=== PATIENT | female | born 1970 | race Two or more races ===

== ENCOUNTER 2019-11-03 16:57 | Observation (INO) | payer MEDICARE, BC ==
[~2019-11-03 16:57] MED LIST: DEXAMETHASONE SOD PHOSPHATE INJ 4 MG/1 ML VIAL ONE; GLYCOPYRROLATE 1 MG/5 ML VIAL ONE; KETOROLAC TROMETHAMINE 60 MG/2 ML SDV ONE; LIDOCAINE 2% INJ-PF (20 MG/ML) 2 ML AMPUL ONE; NEOSTIGMINE METHYLSULFATE 10 MG/10 ML VIAL ONE; ONDANSETRON HCL INJ/PF 4 MG/2 ML SDV ONE; ROCURONIUM BROMIDE INJ 50 MG/5 ML VIAL IV ONE
--- NOTE | 2019-11-03 17:06 | ER Document Report ---
ED Medical Screen (RME) - General Chief Complaint: Vomiting Stated Complaint: ABDOMINAL PAIN,VOMITING,CHILLS Time Seen by Provider: 11/03/19 17:03 Mode of Arrival: Wheelchair Information source: Patient Notes: 49-year-old female presented to ED for right lower quadrant/pelvic pain nausea vomiting since a.m. She is sweating. She is alert oriented respirations regular nonlabored. She states she has not had any fevers. She states the pain started about 10 AM. Does have extreme tenderness to the right lower quadrant/pelvic area. I have greeted and performed a rapid initial assessment of this patient. A comprehensive ED assessment and evaluation of the patient, analysis of test results and completion of medical decision making process will be conducted by an additional ED providers.
--- NOTE | 2019-11-03 17:31 | ER Document Report ---
ED GI/ - General Chief Complaint: Vomiting Stated Complaint: ABDOMINAL PAIN,VOMITING,CHILLS Time Seen by Provider: 11/03/19 17:03 Mode of Arrival: Ambulatory Information source: Patient TRAVEL OUTSIDE OF THE [place] IN LAST 30 DAYS: No - HPI Patient complains to provider of: Abdominal pain - This 49-year-old female presents to the emergency room today stating that she had right lower abdominal discomfort which started about 10:00 it is severely tender she last had a menstrual period 2 weeks ago she has not had any p.o. food or fluids since 10 AM. She was advised not to eat or drink anything while she is here in the department. - Related Data Allergies/Adverse Reactions: No Known Allergies Allergy (Unverified 11/03/19 17:50) Past Medical History - General Information source: Patient - Social History Smoking Status: Never Smoker Cigarette use (# per day): No Chew tobacco use (# tins/day): No Smoking Education Provided: No Frequency of alcohol use: None Drug Abuse: None Family History: None Review of Systems - Review of Systems Constitutional: No symptoms reported EENT: No symptoms reported Cardiovascular: No symptoms reported Respiratory: No symptoms reported Gastrointestinal: No symptoms reported, Abdominal pain, Diarrhea, Poor appetite. denies: Nausea Genitourinary: No symptoms reported Female Genitourinary: No symptoms reported Musculoskeletal: No symptoms reported Skin: No symptoms reported Hematologic/Lymphatic: No symptoms reported Neurological/Psychological: No symptoms reported Physical Exam - Vital signs Vitals: Temp 97.8 F 11/03/19 17:35 Interpretation: Normal - General General appearance: Appears well, Alert - HEENT Head: Normocephalic, Atraumatic Eyes: Normal Pupils: PERRL - Respiratory Respiratory status: No respiratory distress Chest status: Nontender Breath sounds: Normal Chest palpation: Normal - Cardiovascular Rhythm: Regular Heart sounds: Normal auscultation Murmur: No - Abdominal Inspection: Normal Distension: No distension. No: Tympanitic, Fluid wave Bowel sounds: Hypoactive Tenderness: Nontender, Tender Organomegaly: No organomegaly - Genitourinary External exam: Normal Speculum exam: Normal Vaginal bleeding: Mild Bimanuel exam: Cervical motion tender - mild, Adnexal tenderness - right - Back Back: Normal, Nontender - Extremities General upper extremity: Normal inspection, Nontender, Normal color, Normal ROM, Normal temperature General lower extremity: Normal inspection, Nontender, Normal color, Normal ROM, Normal temperature, Normal weight bearing. No: Calos's sign - Neurological Neuro grossly intact: Yes Cognition: Normal Orientation: AAOx4 Jacque Coma Scale Eye Opening: Spontaneous [place] Coma Scale Verbal: Oriented [place] Coma Scale Motor: Obeys Commands Jacque Coma Scale Total: 15 Speech: Normal Motor strength normal: LUE, RUE, LLE, RLE Sensory: Normal - Psychological Associated symptoms: Normal affect, Normal mood - Skin Skin Temperature: Warm Skin Moisture: Dry Skin Color: Normal Course - Re-evaluation Re-evalutation: 11/03/19 19:38 Patient was reevaluated still having discomfort in the right lower quadrant. Morphine was ordered. Surgeon sewer separation designer was called who came to the bedside evaluated the patient and he did agree that he would bring her over to the operating room. COVID testing was performed. - Vital Signs Vital signs: Temp Pulse Resp BP Pulse Ox 97.8 F 67 20 111/68 100 11/03/19 17:35 11/03/19 17:38 11/03/19 17:38 11/03/19 17:38 11/03/19 17:38 - Laboratory Result Diagrams: 11/03/19 17:35 11/03/19 17:35 Laboratory results interpreted by me: 11/03/19 11/03/19 17:35 17:35 WBC 25.3 H RDW 18.0 H Seg Neuts % (Manual) 93 H Band Neutrophils % 1 L Lymphocytes % (Manual) 4 L Monocytes % (Manual) 2 L Abs Neuts (Manual) 23.8 H Chloride 109 H Carbon Dioxide 20 L Glucose 150 H Total Protein 8.4 H Labs- All tests 24 hr 11/03/19 11/03/19 11/03/19 17:35 17:35 17:35 WBC 25.3 H RBC 4.56 Hgb 13.2 Hct 39.2 MCV 86 MCH 28.9 MCHC 33.7 RDW 18.0 H Plt Count 293 Lymph % (Auto) Not Reportable [place] % (Auto) Not Reportable Eos % (Auto) Not Reportable Baso % (Auto) Not Reportable Absolute Neuts (auto) Not Reportable Absolute Lymphs (auto) Not Reportable Absolute Monos (auto) Not Reportable Absolute Eos (auto) Not Reportable Absolute Basos (auto) Not Reportable Total Counted 100 Seg Neutrophils % Not Reportable Seg Neuts % (Manual) 93 H Band Neutrophils % 1 L Lymphocytes % (Manual) 4 L Monocytes % (Manual) 2 L Eosinophils % (Manual) 0 Basophils % (Manual) 0 Abs Neuts (Manual) 23.8 H Abs Lymphs (Manual) 1.0 Abs Monocytes (Manual) 0.5 Absolute Eos (Manual) 0.0 Abs Basophils (Manual) 0.0 Large Platelets PRESENT Platelet Comment ADEQUATE Polychromasia SLIGHT Anisocytosis 1+ Sodium 138.6 Potassium 4.1 Chloride 109 H Carbon Dioxide 20 L Anion Gap 10 BUN 12 Creatinine 0.77 Est GFR ( Amer) > 60 Est GFR (MDRD) Non-Af > 60 Glucose 150 H Calcium 10.0 Total Bilirubin 0.6 Direct Bilirubin 0.0 Neonat Total Bilirubin Not Reportable Neonat Direct Bilirubin Not Reportable Neonat Indirect Bili Not Reportable AST 26 ALT 17 Alkaline Phosphatase 79 Total Protein 8.4 H Albumin 4.7 Serum HCG, Qual NEGATIVE - Diagnostic Test Radiology results interpreted by me: 11/03/19 19:39 Transvaginal US 11/03/19 17:04 IMPRESSION: Mildly enlarged and heterogenously right ovary. Right ovarian color vascular flow visualize although no Doppler waveforms were obtained. Ovarian torsion cannot be excluded. Abdomen/Pelvis CT 11/03/19 17:29 IMPRESSION: 1. Appendix is enlarged with small appendicoliths. Very minimal surrounding inflammatory change. Findings are concerning for early acute appendicitis. Clinical correlation is recommended. 2. Cholelithiasis. No CT evidence of acute cholecystitis. Discharge - Discharge Clinical Impression: Appendicitis Qualifiers: Appendicitis type: acute appendicitis Acute appendicitis type: unspecified acute appendicitis type Qualified Code(s): K35.80 - Unspecified acute appendicitis Disposition: ADMITTED OBSERVATION Admitting Provider: Surgicalist - [facility] Unit Admitted: OR
[2019-11-03] MEDS: NORMAL SALINE 1000 ML 1,000 ML IV PRN ×3 (17:45→22:25)
[2019-11-03 17:48] LABS: HEMATOCRIT 39.2 % (36.0-47.0); HEMOGLOBIN 13.2 g/dL (12.0-15.5); MEAN CORPUSCULAR HEMOGLOBIN 28.9 pg (27.0-33.4); MEAN CORPUSCULAR HGB CONC 33.7 g/dL (32.0-36.0); MEAN CORPUSCULAR VOLUME 86 fl (80-97); PLATELET COUNT 293 10^3/uL (150-450); RED BLOOD COUNT 4.56 10^6/uL (3.72-5.28); WHITE BLOOD COUNT 25.3 10^3/uL (4.0-10.5)
[2019-11-03 18:01] LABS: ALBUMIN 4.7 g/dL (3.5-5.0); ALKALINE PHOSPHATASE 79 U/L (38-126); ANION GAP 10 (5-19); ASPARTATE AMINO TRANSFERASE 26 U/L (14-36); BILIRUBIN,TOTAL 0.6 mg/dL (0.2-1.3); BLOOD UREA NITROGEN 12 mg/dL (7-20); CARBON DIOXIDE 20 mmol/L (22-30); CHLORIDE 109 mmol/L (98-107); GLUCOSE 150 mg/dL (75-110); POTASSIUM 4.1 mmol/L (3.6-5.0); TOTAL PROTEIN 8.4 g/dL (6.3-8.2)
[2019-11-03 18:07] LABS: ABSOLUTE MONOCYTES # (MANUAL) 0.5 10^3/uL (0.1-1.4); BAND NEUTROPHILS % (MANUAL) 1 % (3-5); BASOPHILS % (MANUAL) 0 % (0-2); EOSINOPHILS % (MANUAL) 0 % (0-6); LYMPHOCYTES % (MANUAL) 4 % (13-45); MONOCYTES % (MANUAL) 2 % (3-13); SEGMENTED NEUTROPHILS % (MAN) 93 % (42-78); TOTAL CELLS COUNTED 100
[2019-11-03 18:09] LABS: ANISOCYTOSIS 1+; PLATELET COMMENT ADEQUATE; PLATELET LARGE PRESENT; POLYCHROMASIA SLIGHT
--- NOTE | 2019-11-03 18:11 | RADIOLOGY REPORT (SQ) ---
EXAM DESCRIPTION: U/S NON-OB PELVIS TV W/O DOP IMAGES COMPLETED DATE/TIME: 11/03/2019 5:52 pm REASON FOR STUDY: Right lower quadrant/pelvic pain is 10 AM COMPARISON: None. TECHNIQUE: Dynamic and static grayscale images acquired of the pelvis via transvaginal approach and recorded on PACS. Additional selected color Doppler and spectral images recorded. LIMITATIONS: None. FINDINGS: UTERUS: Contour normal. No mass. ENDOMETRIAL STRIPE: No focal or generalized thickening. No masses. CERVIX: No nabothian cysts. RIGHT OVARY AND DOPPLER: Mildly enlarged and heterogenous in echogenicity. Color vascular flow demon strated although no Doppler waveforms were obtained. LEFT OVARY AND DOPPLER: Ovary not visualized. FREE FLUID: None noted. OTHER: No other significant finding. MEASUREMENTS: UTERUS: 9.8 x 5 x 6.6 ENDOMETRIAL STRIPE: 5.6 mm RIGHT OVARY: 3.8 x 2.6 x 3.6 cm (18 mL) LEFT OVARY: Not visualized. IMPRESSION: Mildly enlarged and heterogenously right ovary. Right ovarian color vascular flow visua lize although no Doppler waveforms were obtained. Ovarian torsion cannot be excluded. COMMENT: The findings were sent to the Radiology Results Communication Center at 18:04 on 11/03/2019 to be communicated to a licensed caregiver. TECHNICAL DOCUMENTATION: JOB ID: [id number] 2010 [employer]- All Rights Reserved Reading location - IP/workstation name: [email or web address]
--- NOTE | 2019-11-03 18:53 | RADIOLOGY REPORT (SQ) ---
EXAM DESCRIPTION: CT ABD/PELVIS NO ORAL OR IV IMAGES COMPLETED DATE/TIME: 11/03/2019 5:14 pm REASON FOR STUDY: Right lower quadrant pain since 1000 hours today COMPARISON: None. TECHNIQUE: CT scan of the abdomen and pelvis performed without intravenous or oral contrast. Images reviewed with lung, soft tissue, and bone windows. Reconstructed coronal and sagittal MPR images revi ewed. All images stored on PACS. All CT scanners at this facility use dose modulation, iterative reconstruction, and/or weight based d osing when appropriate to reduce radiation dose to as low as reasonably achievable (ALARA). [facility]: Dose Right [facility]: CareDose [facility]: Dose Right [facility]: Teradose 4D [facility]: Smart [employer] [place] RADIATION DOSE: CT Rad equipment meets quality standard of care and radiation dose reduction techniq ues were employed. CTDIvol: 5.1 mGy. DLP: 254 mGy-cm.mGy. LIMITATIONS: None. FINDINGS: LOWER CHEST: No significant findings. No nodules or infiltrates. NON-CONTRASTED LIVER, SPLEEN, ADRENALS: Evaluation limited by lack of IV contrast. No identified sign ificant masses. PANCREAS: No masses. No peripancreatic inflammatory changes. GALLBLADDER: Gallstones. No inflammatory changes to suggest cholecystitis. RIGHT KIDNEY AND URETER: No suspicious masses. Assessment limited by lack of IV contrast. No signif icant calcifications. No hydronephrosis or hydroureter. LEFT KIDNEY AND URETER: No suspicious masses. Assessment limited by lack of IV contrast. No signifi cant calcifications. No hydronephrosis or hydroureter. AORTA AND RETROPERITONEUM: No aneurysm. No retroperitoneal masses or adenopathy. BOWEL AND PERITONEAL CAVITY: No obvious masses or inflammatory changes. No free fluid. APPENDIX: The appendix is enlarged measuring up to 11 mm. There are several hyperdense appendicolith s within the lumen. Minimal surrounding inflammatory change with very minimal fluid in the right per icolic gutter. PELVIS, BLADDER, AND ABDOMINAL WALL:Uterus and ovaries have normal size. No adnexal mass. Urinary b ladder is unremarkable. Calcified pelvic phleboliths. BONES: No significant findings. OTHER: No other significant finding. IMPRESSION: 1. Appendix is enlarged with small appendicoliths. Very minimal surrounding inflammatory change. Fi ndings are concerning for early acute appendicitis. Clinical correlation is recommended. 2. Cholelithiasis. No CT evidence of acute cholecystitis. COMMENT: Findings discussed with Comfort Kenney on 11/03/2019 at 1847 hours. Quality ID # [id number]: Final reports with documentation of one or more dose reduction techniques (e.g., Au tomated exposure control, adjustment of the mA and/or kV according to patient size, use of iterative reconstruction technique) TECHNICAL DOCUMENTATION: JOB ID: [id number] 2010 [employer]- All Rights Reserved Reading location - IP/workstation name: [email or web address]
[2019-11-03] MEDS ORDERED: MORPHINE SULFATE 10 MG/ML INJ IV ONE (19:23)
[2019-11-03] MEDS ORDERED: PIPERACILLIN/TAZOBACTAM 3.375 GM VIAL IV ONE (21:00)
[2019-11-03 21:16] LABS: APPEARANCE,URINE SLIGHTLY-CLOUDY; BILIRUBIN,URINE NEGATIVE (NEGATIVE); COLOR,URINE YELLOW; GLUCOSE, URINE NEGATIVE (NEGATIVE); KETONES,URINE TRACE mg/dL (NEGATIVE); LEUKOCYTE ESTERASE,URINE NEGATIVE (NEGATIVE); NITRITE,URINE NEGATIVE (NEGATIVE); PROTEIN,URINE NEGATIVE (NEGATIVE); URINE SPECIFIC GRAVITY 1.023; UROBILINOGEN,URINE NEGATIVE mg/dL (<2.0)
--- NOTE | 2019-11-03 21:50 | PDOC H&P ---
History of Present Illness Admission Date/PCP: 11/03/19 20:18 Patient complains of: Right lower quadrant pain History of Present Illness: DELILAH CASTRO is a 49 year old female with acute onset of severe right lower quadrant pain today at 10 AM. Patient reports that her pain is sharp and stabbing, and is situated low in the right lower quadrant. It is constant. She rates it 10 out of 10. It does not radiate. She has never experienced symptoms like this before. She experienced nausea and vomiting after the pain began. She denies fevers, chills, melena, hematochezia, constipation, diarrhea, chest pain, shortness of breath, headache, dizziness, orthostasis, fatigue, malaise. She has no other significant medical problems, aside for mild asthma and m igraine headaches. Past Medical History Pulmonary Medical History: Reports: Asthma Neurological Medical History: Reports: Migraine Social History Smoking Status: Never Smoker Frequency of Alcohol Use: None Hx Recreational Drug Use: No Hx Prescription Drug Abuse: No Family History Family History: None Parental Family History Reviewed: Yes Children Family History Reviewed: Yes Sibling(s) Family History Reviewed.: Yes Medication/Allergy Allergies/Adverse Reactions: No Known Allergies Allergy (Unverified 11/03/19 17:50) Review of Systems Constitutional: PRESENT: anorexia, chills. ABSENT: fatigue, fever(s), weakness Eyes: ABSENT: visual disturbances Ears: ABSENT: hearing changes Nose, Mouth, and Throat: ABSENT: sore throat Cardiovascular: ABSENT: chest pain Respiratory: ABSENT: cough, dyspnea Gastrointestinal: PRESENT: abdominal pain, nausea, vomiting. ABSENT: hematemesis, hematochezia, melena Genitourinary: ABSENT: dysuria Musculoskeletal: ABSENT: back pain Integumentary: ABSENT: pruritus, rash Neurological: ABSENT: confusion, convulsions, dizziness Psychiatric: ABSENT: anxiety, depression Endocrine: ABSENT: cold intolerance, heat intolerance Hematologic/Lymphatic: ABSENT: easy bleeding, easy bruising Physical Exam Vital Signs: Temp Pulse Resp BP Pulse Ox 97.8 F 67 20 111/68 100 11/03/19 17:35 11/03/19 17:38 11/03/19 17:38 11/03/19 17:38 11/03/19 17:38 Intake & Output 11/02/19 11/03/19 11/04/19 06:59 06:59 06:59 Intake Total 1000 Balance 1000 Weight 63.503 kg General appearance: PRESENT: cooperative, mild distress - Abdominal comfort Head exam: PRESENT: atraumatic, normocephalic Eye exam: PRESENT: EOMI, PERRLA. ABSENT: scleral icterus Mouth exam: PRESENT: moist, neck supple Neck exam: ABSENT: meningismus, tenderness, thyromegaly, tracheal deviation Respiratory exam: PRESENT: unlabored. ABSENT: chest wall tenderness, tachypnea, wheezes Cardiovascular exam: PRESENT: RRR. ABSENT: tachycardia Vascular exam: PRESENT: normal capillary refill. ABSENT: pallor GI/Abdominal exam: PRESENT: guarding - Involuntary guarding, right lower quadrant, soft, tenderness - Right lower quadrant tenderness. ABSENT: distended, firm, rigid Rectal exam: PRESENT: deferred Extremities exam: ABSENT: clubbing Musculoskeletal exam: ABSENT: deformity Neurological exam: PRESENT: alert, awake, oriented to person, oriented to place, oriented to time, oriented to situation, CN II-XII grossly intact Psychiatric exam: PRESENT: anxious. ABSENT: agitated, depressed Focused psych exam: ABSENT: delusional Skin exam: ABSENT: cyanosis, erythema, jaundice Results Laboratory Results: 11/03/19 17:35 11/03/19 17:35 11/03/19 11/03/19 11/03/19 17:35 17:35 17:35 WBC 25.3 H RBC 4.56 Hgb 13.2 Hct 39.2 MCV 86 MCH 28.9 MCHC 33.7 RDW 18.0 H Plt Count 293 Seg Neutrophils % Not Reportable Sodium 138.6 Potassium 4.1 Chloride 109 H Carbon Dioxide 20 L Anion Gap 10 BUN 12 Creatinine 0.77 Est GFR ( Amer) > 60 Glucose 150 H Calcium 10.0 Total Bilirubin 0.6 AST 26 Alkaline Phosphatase 79 Total Protein 8.4 H Albumin 4.7 Serum HCG, Qual NEGATIVE Urine Color Urine Appearance Urine pH Ur Specific [place] Urine Protein Urine Glucose (UA) Urine Ketones Urine Blood Urine Nitrite Ur Leukocyte Esterase Urine WBC (Auto) Urine RBC (Auto) 11/03/19 20:50 WBC RBC Hgb Hct MCV MCH MCHC RDW Plt Count Seg Neutrophils % Sodium Potassium Chloride Carbon Dioxide Anion Gap BUN Creatinine Est GFR ( Amer) Glucose Calcium Total Bilirubin AST Alkaline Phosphatase Total Protein Albumin Serum HCG, Qual Urine Color YELLOW Urine Appearance SLIGHTLY-CLOUDY Urine pH 6.0 Ur Specific [place] 1.023 Urine Protein NEGATIVE Urine Glucose (UA) NEGATIVE Urine Ketones TRACE H Urine Blood NEGATIVE Urine Nitrite NEGATIVE Ur Leukocyte Esterase NEGATIVE Urine WBC (Auto) 1 Urine RBC (Auto) 1 Impressions: Transvaginal US 11/03/19 17:04 IMPRESSION: Mildly enlarged and heterogenously right ovary. Right ovarian color vascular flow visualize although no Doppler waveforms were obtained. Ovarian torsion cannot be excluded. Abdomen/Pelvis CT 11/03/19 17:29 IMPRESSION: 1. Appendix is enlarged with small appendicoliths. Very minimal surrounding inflammatory change. Findings are concerning for early acute appendicitis. Clinical correlation is recommended. 2. Cholelithiasis. No CT evidence of acute cholecystitis. Assessment & Plan - Diagnosis (1) Abdominal pain, right lower quadrant Is this a current diagnosis for this admission?: Yes - Plan Summary Plan Summary: This is a 49-year-old female presenting with sharp, stabbing, severe right lower quadrant pain. She has a leukocytosis of 25,000, with a bandemia. She has a CT scan which shows an appendicolith, without significant inflammatory stranding. There is mild dilation of the appendix. She was also worked up for an ovarian torsion, which was equivocal. The patient has abdominal tenderness and a leukocytosis. I have personally reviewed her CT scan images. There is not a significant amount of appendicitis on the CT scan, however with her current constellation of symptoms it is the most likely reason for her constellation of complaints. I have recommended exploratory laparoscopy with appendectomy. If PL[employer] pathology is found during laparoscopy, she may require further treatment. Risks/benefits discussed, informed consent obtained, and all questions answered.
[2019-11-03] MEDS ORDERED: MIDAZOLAM 2 MG/2 ML INJ ONE (22:12)
[2019-11-03] MEDS ORDERED: HYDROMORPHONE HCL INJ/PF 2 MG/ML AMPULE ONE (22:12)
[2019-11-03] MEDS ORDERED: PROPOFOL INJ 200 MG/20 ML VIAL IV ONE (22:12)
[2019-11-03] MEDS ORDERED: BUPIVACAINE HCL 0.25 % INJ/PF (2.5 MG/1 ML) 30 ML VIAL ONE (22:27)
[2019-11-03] MEDS ORDERED: MORPHINE SULFATE 10 MG/ML INJ IV PRN (23:51)
[2019-11-03] MEDS ORDERED: HYDROCODONE/ACETAMINOPHEN 10-325 MG TABLET PO PRN (23:58)
[2019-11-04] MEDS ORDERED: PIPERACILLIN/TAZOBACTAM 3.375 GM VIAL IV PRN (00:02)
--- NOTE | 2019-11-04 00:04 | Operative Report ---
Nonrecallable Operative Report DATE OF SURGERY: 11/03/19 PREOPERATIVE DIAGNOSIS: Acute appendicitis POSTOPERATIVE DIAGNOSIS: Acute, nonperforated appendicitis OPERATION: Laparoscopic appendectomy SURGEON: LILLY VARGAS ANESTHESIA: GA TISSUE REMOVED OR ALTERED: Appendix COMPLICATIONS: None apparent ESTIMATED BLOOD LOSS: Minimal PROCEDURE: drain/implant: None. Procedure in detail: After informed consent was obtained, the patient was brought to the operating room and laid in the supine position. The area of the abdomen was prepped and draped in a normal sterile fashion. 15 blade scalpel was used to create an incision in the supraumbilical midline. Dissection was carried through the subcutaneous tissues using sharp and blunt dissection. The cicatrix was identified, grasped with a Ralph clamp, and retracted upwards. The linea alba fascia was incised sharply. The abdomen was entered sharply. The balloon trocar was inserted, and pneumoperitoneum was achieved. A suprapubic 5 mm trocar was then placed under direct laparoscopic visualization, as was a left lower quadrant 5 mm trocar. Atraumatic graspers were placed through the 5 mm ports. The abdomen was then surveyed. The appendix appeared injected and inflamed. The right and left ovary had several small cysts apparent, but did not appear to have any significant pathology. There is no evidence of tubo-ovarian abscess. The right upper quadrant and left upper quadrants were quickly surveyed, and were found to have no significant abnormality. The small bowel was inspected, and was free of any evidence of perforation, necrosis, or obstruction. Once this was confirmed, attention was turned back to the appendix The appendix was retracted anteriorly. The mesoappendix was taken down using the harmonic scalpel. 2 PDS Endoloops were secured around the base of the appendix. The appendix was then amputated and placed into an Endo Catch bag. The appendix was pulled out through the supraumbilical port. The camera was reinserted. Hemostasis was ensured. The 5 mm trochars were removed under direct laparoscopic visualization. The 12 mm trocar was removed, and pneumoperitoneum was relieved. The supraumbilical fascia was closed using 0 Vicryl suture in [id number] fashion. The overlying skin was closed using 4-0 Vicryl Rapide suture in subcuticular fashion. Dressings were placed, and the procedure was concluded. All sponge, instrument, and needle counts were correct x2. Condition: Stable.
[2019-11-04] MEDS: FAMOTIDINE 20 MG TABLET PO SCH ×3 (01:03→21:36)
[2019-11-04] MEDS: DEXTROSE 5%-LACTATED RINGERS 1,000 ML IV PRN ×2 (01:05→15:10)
[2019-11-04] MEDS ORDERED: PIPERACILLIN/TAZOBACTAM 3.375 GM VIAL IV ONE ×2 (01:15→21:48)
[2019-11-04] MEDS ORDERED: PIPERACILLIN SODIUM/TAZOBACTAM 3.375 GM in NORMAL SALINE 100 ML IV SCH ×3 (03:00)
[2019-11-04 05:08] LABS: HEMATOCRIT 33.4 % (36.0-47.0); MEAN CORPUSCULAR HEMOGLOBIN 28.5 pg (27.0-33.4); MEAN CORPUSCULAR VOLUME 86 fl (80-97); PLATELET COUNT 237 10^3/uL (150-450); RED BLOOD COUNT 3.86 10^6/uL (3.72-5.28); WHITE BLOOD COUNT 18.3 10^3/uL (4.0-10.5)
[2019-11-04] MEDS: KETOROLAC TROMETHAMINE INJ/PF 30 MG/1 ML SDV IV SCH ×3 (05:22→21:35)
[2019-11-04 05:23] LABS: ALBUMIN 3.6 g/dL (3.5-5.0); ALKALINE PHOSPHATASE 53 U/L (38-126); ANION GAP 6 (5-19); ASPARTATE AMINO TRANSFERASE 21 U/L (14-36); BILIRUBIN,TOTAL 0.4 mg/dL (0.2-1.3); BLOOD UREA NITROGEN 10 mg/dL (7-20); CALCIUM 8.5 mg/dL (8.4-10.2); CARBON DIOXIDE 20 mmol/L (22-30); CHLORIDE 112 mmol/L (98-107); GLUCOSE 147 mg/dL (75-110); POTASSIUM 4.3 mmol/L (3.6-5.0); TOTAL PROTEIN 6.6 g/dL (6.3-8.2)
[2019-11-04 05:55] LABS: ABSOLUTE LYMPHOCYTES# (MANUAL) 0.2 10^3/uL (0.5-4.7); BASOPHILS % (MANUAL) 0 % (0-2); EOSINOPHILS % (MANUAL) 0 % (0-6); LYMPHOCYTES % (MANUAL) 1 % (13-45); MONOCYTES % (MANUAL) 0 % (3-13); SEGMENTED NEUTROPHILS % (MAN) 99 % (42-78); TOTAL CELLS COUNTED 100
[2019-11-04 05:56] LABS: ANISOCYTOSIS 1+; OVALOCYTES 1+; PLATELET COMMENT ADEQUATE; POIKILOCYTOSIS 1+; TOXIC GRANULATION SLIGHT
[2019-11-04] MEDS: ONDANSETRON HCL INJ/PF 4 MG/2 ML SDV IV PRN ×3 (08:56→22:12)
[2019-11-04] MEDS: PIPERACILLIN SODIUM/TAZOBACTAM 3.375 GM in NORMAL SALINE 100 ML IV SCH ×3 (11:03→22:12)
--- NOTE | 2019-11-04 16:49 | PDOC PROGRESS REPORT ---
Subjective Progress Note for:: 11/04/19 Reason For Visit: ACUTE APPENDICITIS Physical Exam Vital Signs: Temp Pulse Resp BP Pulse Ox 98.2 F 56 L 20 109/60 100 11/04/19 15:29 11/04/19 15:29 11/04/19 15:29 11/04/19 15:29 11/04/19 15:29 Intake & Output 11/03/19 11/04/19 11/05/19 06:59 06:59 06:59 Intake Total 1000 2425 1200 Output Total 25 Balance 975 2425 1200 Weight 63.5 kg Results Laboratory Results: 11/04/19 03:15 11/04/19 03:15 11/03/19 11/03/19 11/03/19 17:35 17:35 17:35 WBC 25.3 H RBC 4.56 Hgb 13.2 Hct 39.2 MCV 86 MCH 28.9 MCHC 33.7 RDW 18.0 H Plt Count 293 Seg Neutrophils % Not Reportable Sodium 138.6 Potassium 4.1 Chloride 109 H Carbon Dioxide 20 L Anion Gap 10 BUN 12 Creatinine 0.77 Est GFR ( Amer) > 60 Glucose 150 H Calcium 10.0 Total Bilirubin 0.6 AST 26 Alkaline Phosphatase 79 Total Protein 8.4 H Albumin 4.7 Serum HCG, Qual NEGATIVE Urine Color Urine Appearance Urine pH Ur Specific [place] Urine Protein Urine Glucose (UA) Urine Ketones Urine Blood Urine Nitrite Ur Leukocyte Esterase Urine WBC (Auto) Urine RBC (Auto) 11/03/19 11/04/19 11/04/19 20:50 03:15 03:15 WBC 18.3 H RBC 3.86 Hgb 11.0 L D Hct 33.4 L MCV 86 MCH 28.5 MCHC 33.0 RDW 18.0 H Plt Count 237 Seg Neutrophils % Not Reportable Sodium 138.3 Potassium 4.3 Chloride 112 H Carbon Dioxide 20 L Anion Gap 6 BUN 10 Creatinine 0.64 Est GFR ( Amer) > 60 Glucose 147 H Calcium 8.5 Total Bilirubin 0.4 AST 21 Alkaline Phosphatase 53 Total Protein 6.6 Albumin 3.6 Serum HCG, Qual Urine Color YELLOW Urine Appearance SLIGHTLY-CLOUDY Urine pH 6.0 Ur Specific [place] 1.023 Urine Protein NEGATIVE Urine Glucose (UA) NEGATIVE Urine Ketones TRACE H Urine Blood NEGATIVE Urine Nitrite NEGATIVE Ur Leukocyte Esterase NEGATIVE Urine WBC (Auto) 1 Urine RBC (Auto) 1 Impressions: Transvaginal US 11/03/19 17:04 IMPRESSION: Mildly enlarged and heterogenously right ovary. Right ovarian color vascular flow visualize although no Doppler waveforms were obtained. Ovarian torsion cannot be excluded. Abdomen/Pelvis CT 11/03/19 17:29 IMPRESSION: 1. Appendix is enlarged with small appendicoliths. Very minimal surrounding inflammatory change. Findings are concerning for early acute appendicitis. Clinical correlation is recommended. 2. Cholelithiasis. No CT evidence of acute cholecystitis. Assessment & Plan - Diagnosis (1) Abdominal pain, right lower quadrant Is this a current diagnosis for this admission?: Yes - Plan Summary Plan Summary: 49 y/o F with acute appendicitis. She still has a leukocytosis. She c/o pain and nausea. Continue Abx. She should remain hospitalized until her symtpoms and leukocytosis are improved. Repeat labs tomorrow.
[2019-11-05] MEDS: PIPERACILLIN SODIUM/TAZOBACTAM 3.375 GM in NORMAL SALINE 100 ML IV SCH ×2 (04:25→10:11)
[2019-11-05] MEDS: KETOROLAC TROMETHAMINE INJ/PF 30 MG/1 ML SDV IV SCH (05:13)
[2019-11-05] MEDS: DEXTROSE 5%-LACTATED RINGERS 1,000 ML IV PRN (05:22)
--- NOTE | 2019-11-05 09:12 | PDOC DISCHARGE SUMMARY ---
General - Admit/Disc Date/PCP Admission Date/Primary Care Provider: 11/03/19 20:18 Discharge Date: 11/05/19 - Discharge Diagnosis Final Diagnosis: Acute appendicitis status post laparoscopic appendectomy - Assessment Summary: Patient is a 49-year-old female presents emergency department complaining of abdominal pain, right lower quadrant tenderness and leukocytosis. Patient had a CT scan performed which showed findings consistent with appendicitis. Patient was admitted to the acute care surgical service, taken to the operating room by Dr. Alfredo Moreno, and underwent laparoscopic appendectomy. She was found to have findings consistent with early appendicitis no perforation. Patient was recovered on the floor, started on a diet and this was advanced and tolerated well. Her white blood cell count defervesced from 25,000 18,000 over 24 hours. By the second postoperative day she was getting about well, requiring no narcotics, and had a completely benign abdomen. She wanted to go home. She was felt to receive maximum benefit from the hospitalization and was discharged. - Additional Information Resuscitation Status: Full Code Discharge Diet: As Tolerated Discharge Activity: Activity As Tolerated Referrals: LILLY MORENO MD [ACTIVE STAFF] - 11/12/19 1:45 pm () Home Medications: Hydroxyzine HCl [Atarax 10 mg Tablet] 25 mg PO BIDP PRN 11/04/19 Montelukast Sodium [Singulair] 10 mg PO DAILY 11/04/19 Quetiapine Fumarate [Seroquel 25 mg Tablet] 50 mg PO QHS 11/04/19 Additional Information: Patient be discharged home the care of her family, follow-up with Dr. Moreno in 1 to 2 weeks, shower, take Tylenol or Motrin as needed pain. History of Present Illiness History of Present Illness: DELILAH CASTRO is a 49 year old female Physical Exam Vital Signs: Temp Pulse Resp BP Pulse Ox 98.1 F 50 L 16 135/74 H 100 11/05/19 07:44 11/05/19 07:44 11/05/19 07:44 11/05/19 07:44 11/05/19 07:44 Intake & Output 11/04/19 11/05/19 11/06/19 06:59 06:59 06:59 Intake Total 2425 2510 Output Total 650 Balance 2425 1860 Weight 63.5 kg 63.5 kg Results Laboratory Results: WBC 18.3 10^3/uL (4.0-10.5) H 11/04/19 03:15 RBC 3.86 10^6/uL (3.72-5.28) 11/04/19 03:15 Hgb 11.0 g/dL (12.0-15.5) L D 11/04/19 03:15 Hct 33.4 % (36.0-47.0) L 11/04/19 03:15 MCV 86 fl (80-97) 11/04/19 03:15 MCH 28.5 pg (27.0-33.4) 11/04/19 03:15 MCHC 33.0 g/dL (32.0-36.0) 11/04/19 03:15 RDW 18.0 % (11.5-14.0) H 11/04/19 03:15 Plt Count 237 10^3/uL (150-450) 11/04/19 03:15 Lymph % (Auto) Not Reportable 11/04/19 03:15 [place] % (Auto) Not Reportable 11/04/19 03:15 Eos % (Auto) Not Reportable 11/04/19 03:15 Baso % (Auto) Not Reportable 11/04/19 03:15 Absolute Neuts (auto) Not Reportable 11/04/19 03:15 Absolute Lymphs (auto) Not Reportable 11/04/19 03:15 Absolute Monos (auto) Not Reportable 11/04/19 03:15 Absolute Eos (auto) Not Reportable 11/04/19 03:15 Absolute Basos (auto) Not Reportable 11/04/19 03:15 Total Counted 100 11/04/19 03:15 Seg Neutrophils % Not Reportable 11/04/19 03:15 Seg Neuts % (Manual) 99 % (42-78) H 11/04/19 03:15 Band Neutrophils % 1 % (3-5) L 11/03/19 17:35 Lymphocytes % (Manual) 1 % (13-45) L 11/04/19 03:15 Monocytes % (Manual) 0 % (3-13) L 11/04/19 03:15 Eosinophils % (Manual) 0 % (0-6) 11/04/19 03:15 Basophils % (Manual) 0 % (0-2) 11/04/19 03:15 Abs Neuts (Manual) 18.1 10^3/uL (1.7-8.2) H 11/04/19 03:15 Abs Lymphs (Manual) 0.2 10^3/uL (0.5-4.7) L 11/04/19 03:15 Abs Monocytes (Manual) 0.0 10^3/uL (0.1-1.4) L 11/04/19 03:15 Absolute Eos (Manual) 0.0 10^3/uL (0.0-0.6) 11/04/19 03:15 Abs Basophils (Manual) 0.0 10^3/uL (0.0-0.2) 11/04/19 03:15 Toxic Granulation SLIGHT 11/04/19 03:15 Large Platelets PRESENT 11/03/19 17:35 Platelet Comment ADEQUATE 11/04/19 03:15 Polychromasia SLIGHT 11/03/19 17:35 Poikilocytosis 1+ 11/04/19 03:15 Anisocytosis 1+ 11/04/19 03:15 Ovalocytes 1+ 11/04/19 03:15 Sodium 138.3 mmol/L (137-145) 11/04/19 03:15 Potassium 4.3 mmol/L (3.6-5.0) 11/04/19 03:15 Chloride 112 mmol/L (98-107) H 11/04/19 03:15 Carbon Dioxide 20 mmol/L (22-30) L 11/04/19 03:15 Anion Gap 6 (5-19) 11/04/19 03:15 BUN 10 mg/dL (7-20) 11/04/19 03:15 Creatinine 0.64 mg/dL (0.52-1.25) 11/04/19 03:15 Est GFR ( Amer) > 60 (>60) 11/04/19 03:15 Est GFR (MDRD) Non-Af > 60 (>60) 11/04/19 03:15 Glucose 147 mg/dL (75-110) H 11/04/19 03:15 Calcium 8.5 mg/dL (8.4-10.2) 11/04/19 03:15 Total Bilirubin 0.4 mg/dL (0.2-1.3) 11/04/19 03:15 Direct Bilirubin 0.0 mg/dL (0.0-0.4) 11/04/19 03:15 Neonat Total Bilirubin Not Reportable 11/04/19 03:15 Neonat Direct Bilirubin Not Reportable 11/04/19 03:15 Neonat Indirect Bili Not Reportable 11/04/19 03:15 AST 21 U/L (14-36) 11/04/19 03:15 ALT 14 U/L (<35) 11/04/19 03:15 Alkaline Phosphatase 53 U/L (38-126) 11/04/19 03:15 Total Protein 6.6 g/dL (6.3-8.2) 11/04/19 03:15 Albumin 3.6 g/dL (3.5-5.0) 11/04/19 03:15 Serum HCG, Qual NEGATIVE (NEGATIVE) 11/03/19 17:35 Urine Color YELLOW 11/03/19 20:50 Urine Appearance SLIGHTLY-CLOUDY 11/03/19 20:50 Urine pH 6.0 (5.0-9.0) 11/03/19 20:50 Ur Specific [place] 1.023 11/03/19 20:50 Urine Protein NEGATIVE mg/dL (NEGATIVE) 11/03/19 20:50 Urine Glucose (UA) NEGATIVE mg/dL (NEGATIVE) 11/03/19 20:50 Urine Ketones TRACE mg/dL (NEGATIVE) H 11/03/19 20:50 Urine Blood NEGATIVE (NEGATIVE) 11/03/19 20:50 Urine Nitrite NEGATIVE (NEGATIVE) 11/03/19 20:50 Urine Bilirubin NEGATIVE (NEGATIVE) 11/03/19 20:50 Urine Urobilinogen NEGATIVE mg/dL (<2.0) 11/03/19 20:50 Ur Leukocyte Esterase NEGATIVE (NEGATIVE) 11/03/19 20:50 Urine WBC (Auto) 1 /HPF 11/03/19 20:50 Urine RBC (Auto) 1 /HPF 11/03/19 20:50 Squamous Epi Cells Auto 2 /HPF 11/03/19 20:50 Urine Mucus (Auto) FEW /LPF 11/03/19 20:50 Urine Ascorbic Acid NEGATIVE (NEGATIVE) 11/03/19 20:50 SARS-CoV-2 (PCR) NEGATIVE (NEGATIVE) 11/03/19 19:51 Impressions: Transvaginal US 11/03/19 17:04 IMPRESSION: Mildly enlarged and heterogenously right ovary. Right ovarian color vascular flow visualize although no Doppler waveforms were obtained. Ovarian torsion cannot be excluded. Abdomen/Pelvis CT 11/03/19 17:29 IMPRESSION: 1. Appendix is enlarged with small appendicoliths. Very minimal surrounding inflammatory change. Findings are concerning for early acute appendicitis. Clinical correlation is recommended. 2. Cholelithiasis. No CT evidence of acute cholecystitis.
[2019-11-05] MEDS: FAMOTIDINE 20 MG TABLET PO SCH (10:11)
[2019-11-05 12:47] VITALS: BP 116/70
== END 2019-11-05 12:13 | disposition home or self-care (01) ==
LOC: ER 16:57 → EH 20:18 → 4W 11-04 00:30
PROVIDERS: ATTEND Surgery
DX: K35.80 Unspecified acute appendicitis (principal); Z03.818 Encounter for observation for suspected exposure to other biological agents ruled out; N83.202 Unspecified ovarian cyst, left side; N83.201 Unspecified ovarian cyst, right side; J45.909 Unspecified asthma, uncomplicated; Z79.899 Other long term (current) drug therapy
CPT/HCPCS: 99285; 96375; 96365; 36415 ×2; 87086; 84703; 85025 ×2; 80053 ×2; 81001; 88304 ×2; 76830; 74176; 94799; 44970; U0003; J2250; A9270 ×3; J3490 ×3; J1100; J1885 ×2; J2270; J2710; J1170; J2405 ×2; J7121 ×2; J7050 ×2; J7030; J2704; J2543 ×3; C9803; 840; 87635; 99140